=== PATIENT | male | born 1950 | race Caucasian/White ===

== ENCOUNTER 2017-12-25 15:22 | Emergency (ER) | payer MEDICARE, OTHER ==
[2017-12-25 15:58] LABS: CHLORIDE,CL 106 mEq/L (98-106); SODIUM,NA 142 mEq/L (136-145)
--- NOTE | 2017-12-25 16:45 | EDM.PDOC ---
ED HPI GENERAL MEDICAL PROBLEM - General Chief Complaint: General Stated Complaint: NEAR SYNCOPE Time Seen by Provider: 12/25/17 16:00 Source of Information: Reports: Patient History Limitations: Reports: No Limitations - History of Present Illness INITIAL COMMENTS - FREE TEXT/NARRATIVE: Patient presents to ER with complaints of feeling sweaty and weak. He relates that he is here for a meeting. Had a good lunch but within an hour or so, started to feel very sweaty and weak. Also mildly lightheaded. Those symptoms have now passed but he continues to feel "a bit off". Is a diabetic. Has had low blood sugars in the past but this felt different. Denies any chest pain or shortness of breath with this spell. He did eat well today. No issues with low blood pressure, actually high on presentation. He feels somewhat unsteady on arrival. No nausea/vomiting/diarrhea or constipation. Is currently battling a chest cold, on his 3rd round of antibiotics for that but feels it is finally improving. Had his INR checked on Friday and his dose of Coumadin was increased. Was to return tomorrow to his usual provider for a recheck of his INR. History of valve replacement. Onset: Today, Sudden Duration: Hour(s):, Improving Location: Reports: Generalized Severity: Mild Associated Symptoms: Reports: Cough, Diaphoresis, Weakness. Denies: Confusion, Chest Pain, Fever/Chills, Headaches, Loss of Appetite, Nausea/Vomiting, Shortness of Breath, Syncope Headache Pain Score (Numeric/FACES): 4 - Related Data Allergies Allergy/AdvReac Type Severity Reaction Status Date / Time enalapril Allergy Cough Verified 12/25/17 16:15 Home Meds: Home Meds Acetaminophen [Acetaminophen Extra Strength] 1,000 mg PO Q6H 12/25/17 [History] Albuterol [Ventolin HFA] 2 puff INH Q8H PRN 12/25/17 [History] Ascorbic Acid 500 mg PO BID 12/25/17 [History] Aspirin [Ecotrin] 81 mg PO DAILY 12/25/17 [History] Cholecalciferol (Vitamin D3) [Vitamin D3] 1,000 unit PO DAILY 12/25/17 [History] Colchicine [Mitigare] 0.6 mg PO DAILY PRN 12/25/17 [History] Dutasteride [Avodart] 0.5 mg PO DAILY 12/25/17 [History] Flaxseed Oil 1,000 mg PO BID 12/25/17 [History] Fluticasone/Salmeterol [Advair 250-50] 1 puff INH BID 12/25/17 [History] Glimepiride 1 mg PO WITHBREAKFAST 12/25/17 [History] Hydrocodone/Acetaminophen [[place] 5-325 Tablet] 1 each PO TID PRN 12/25/17 [ History] Losartan [Cozaar] 50 mg PO BID 12/25/17 [History] Metoprolol Succinate [Toprol XL] 25 mg PO DAILY 12/25/17 [History] Montelukast [Singulair] 10 mg PO DAILY 12/25/17 [History] Multivitamin [Multi-Vitamin Daily] 1 each PO DAILY 12/25/17 [History] Omeprazole 40 mg PO DAILY 12/25/17 [History] Pregabalin [Lyrica] 50 mg PO TID 12/25/17 [History] Roflumilast [Daliresp] 500 mcg PO DAILY 12/25/17 [History] Simvastatin 5 mg PO DAILY 12/25/17 [History] Tamsulosin [Tamsulosin 24 Hr] 0.4 mg PO DAILY 12/25/17 [History] Warfarin Dosing [Coumadin Ask] 1 each PO ONETIME 12/25/17 [History] Zinc Sulfate 220 mg PO DAILY 12/25/17 [History] metFORMIN [Glucophage XR] 1,000 mg PO BIDMEALS 12/25/17 [History] traMADol [Ultram] 50 mg PO BID 12/25/17 [History] Past Medical History HEENT History: Reports: Cataract Cardiovascular History: Reports: Heart Valve Replacement Respiratory History: Reports: Asthma Endocrine/Metabolic History: Reports: Diabetes, Type II - Past Surgical History GI Surgical History: Reports: Appendectomy Musculoskeletal Surgical History: Reports: Knee Replacement, Shoulder Replacement Social & Family History - Family History Family Medical History: Noncontributory - Tobacco Use Smoking Status *Q: Never Smoker Second Hand Smoke Exposure: No ED ROS GENERAL - Review of Systems Review Of Systems: See Below Constitutional: Reports: Malaise, Weakness, Fatigue. Denies: Fever, Chills, Decreased Appetite HEENT: Denies: Ear Pain, Rhinitis, Throat Pain, Vision Change Respiratory: Reports: Cough. Denies: Shortness of Breath Cardiovascular: Reports: Lightheadedness. Denies: Chest Pain, Edema Endocrine: Reports: Fatigue GI/Abdominal: Denies: Abdominal Pain, Black Stool, Bloody Stool, Nausea, Vomiting : Denies: Dysuria, Frequency Musculoskeletal: Reports: No Symptoms Skin: Reports: No Symptoms Neurological: Reports: Weakness. Denies: Headache ED EXAM, GENERAL - Physical Exam Exam: See Below Exam Limited By: No Limitations General Appearance: Alert, WD/WN, No Apparent Distress Eye Exam: Bilateral Eye: EOMI, PERRL Ears: Normal External Exam, Normal TMs Nose: Normal Inspection, Normal Mucosa, No Blood Throat/Mouth: Normal Inspection, Normal Oropharynx Head: Normocephalic Neck: Normal Inspection, Supple, Non-Tender Respiratory/Chest: No Respiratory Distress, Lungs Clear, Normal Breath Sounds Cardiovascular: Regular Rate, Rhythm, Other (notable click) GI/Abdominal: Normal Bowel Sounds, Soft, Non-Tender Extremities: Normal Inspection, Normal Range of Motion, Normal Capillary Refill Neurological: Alert, Oriented, CN II-XII Intact, Normal Cognition, Normal Gait, Normal Reflexes, No Motor/Sensory Deficits Skin Exam: Warm, Dry Course - Vital Signs Last Recorded V/S: Last Vital Signs Temp 97.6 F 12/25/17 15:56 Pulse 68 12/25/17 16:10 Resp 18 12/25/17 16:10 BP 178/89 H 12/25/17 16:10 Pulse Ox 97 12/25/17 16:10 - Orders/Labs/Meds Orders: Active Orders 24 hr Category Date Time Status Head wo Cont [CT] Stat Exams 12/25/17 15:40 Taken Labs: Laboratory Tests 12/25/17 12/25/17 12/25/17 Range/Units 15:30 15:30 15:30 WBC 10.6 H (5.0-10.0) 10^3/uL RBC 4.32 L (4.50-6.00) 10^6/uL Hgb 12.2 L (14.0-18.0) g/dL Hct 36.7 L (40.0-54.0) % MCV 85.0 (82.0-94.0) fL MCH 28.2 (27.0-32.0) pg MCHC 33.2 (33.0-38.0) g/dL RDW Coeff of [place] 13.9 (11.0-15.0) % Plt Count 228 (150-400) 10^3/uL Neut % (Auto) 64.7 (35-85) % Lymph % (Auto) 20.6 (10-55) % Lamb % (Auto) 12.1 (0-16) % Eos % (Auto) 2.3 (0-5) % Baso % (Auto) 0.3 (0-3) % Neut # (Auto) 6.83 (1.80-7.00) 10^3/uL Lymph # (Auto) 2.18 (1.00-4.80) 10^3/uL Lamb # (Auto) 1.28 H (0.00-0.80) 10^3/uL Eos # (Auto) 0.24 (0.00-0.45) 10^3/uL Baso # (Auto) 0.03 10^3/uL PT 22.0 H (9.7-12.3) SEC INR 2.25 H (0.92-1.18) APTT 38.8 H (23.2-32.3) SEC Sodium 142 (136-145) mEq/L Potassium 4.2 (3.5-5.0) mEq/L Chloride 106 (98-106) mEq/L Carbon Dioxide 26 (21-32) mmol/L BUN 14 (7-18) mg/dL Creatinine 1.0 (0.7-1.3) mg/dL Est Cr Clr Drug Dosing 77.60 mL/min Estimated GFR (MDRD) > 60 (>=60) mL/min Glucose 144 H (75-99) mg/dL Calcium 8.7 (8.4-10.1) mg/dL Lactate Dehydrogenase 258 H (100-190) U/L Creatine Kinase 160 (35-232) U/L Troponin I < 0.017 (0.00-0.06) ng/mL - Re-Assessments/Exams Free Text/Narrative Re-Assessment/Exam: 12/25/[address] scan of the head is negative. Results reviewed with patient. Had patient up and ambulate in the ER. Feels steady now. Declines admission to monitor neuro status, cardiac status. States is staying in the hotel close by and will return if any symptoms return. Departure - Departure Time of Disposition: 16:43 Disposition: Home, Self-Care 01 Condition: Good Clinical Impression: Dizziness - Discharge Information *PRESCRIPTION DRUG MONITORING PROGRAM REVIEWED*: No *COPY OF PRESCRIPTION DRUG MONITORING REPORT IN PATIENT JAMIE: No Referrals: PCP,None [Primary Care Provider] - Forms: ED Department Discharge Additional Instructions: 1. Push fluids 2. Continue current meds 3. If develop any recurring diaphoresis, lightheadedness, headache, or any neurological changes, present back to the ER. - My Orders Last 24 Hours: My Active Orders 12/25/17 15:40 Head wo Cont [CT] Stat - Assessment/Plan Last 24 Hours: My Active Orders 12/25/17 15:40 Head wo Cont [CT] Stat
== END 2017-12-25 16:55 | disposition home or self-care (01) ==
LOC: CC.ED 15:22
DX: R42 Dizziness and giddiness (principal); J45.909 Unspecified asthma, uncomplicated; E11.9 Type 2 diabetes mellitus without complications; Z88.8 Allergy status to other drugs, medicaments and biological substances; Z79.899 Other long term (current) drug therapy; Z79.84 Long term (current) use of oral hypoglycemic drugs; Z95.2 Presence of prosthetic heart valve
CPT/HCPCS: 36415; 70450; 80048; 82550; 83615; 84484; 85025; 85610; 85730; 93005; 99284